=== PATIENT | female | born 1995 | race Caucasian/White ===

== ENCOUNTER 2016-07-11 22:31 | Emergency (ER) | payer MEDICAID ==
[2016-07-11 22:31] VITALS: BMI 27.7
[2016-07-12 00:05] LABS: RBC URINE 1 /hpf (0-3); URINE BACTERIA RARE (<OCC); URINE BILIRUBIN NEGATIVE (NEGATIVE); URINE BLOOD NEGATIVE (NEGATIVE); URINE COLOR Straw (YELLOW); URINE GLUCOSE (UA) NORMAL (Normal); URINE KETONE NEGATIVE (NEGATIVE); URINE LEUKOCYTE ESTERASE NEG Leu/uL (Negative); URINE PROTEIN NEGATIVE (NEGATIVE); URINE UROBILINOGEN NORMAL mg/dL (0.2-1.0); WBC URINE 1 /hpf (0-5)
--- NOTE | 2016-07-12 00:05 | C.PDOC ---
History Of Present Illness Patient presents to the ER with a complaint of dizziness, headache, and spinning sensation. Patient states she saw PMD who started her on motrin for the migraine, however, she states the pain worsened. Patient denies trauma, vision change, nausea or vomiting. Time Seen by Provider: 07/12/16 00:05 Chief Complaint (Nursing): Dizziness/Lightheaded History Per: Patient History/Exam Limitations: no limitations Onset/Duration Of Symptoms: Days Current Symptoms Are (Timing): Still Present Current Symptoms: Dizziness, headache, spinning sensation Activity At Onset Of Symptoms: Other (Not known) Seizure Or Post-ictal Symptoms: None Fall Associated With With Symptoms: No Severity: None Pain Scale Rating Of: 0 Recent travel outside of the [place]: No Past Medical History Reviewed: Historical Data, Nursing Documentation, Vital Signs Vital Signs: Last Vital Signs Temp 98.5 F 07/11/16 23:01 Pulse 81 07/12/16 02:26 Resp 14 07/12/16 02:26 BP 93/53 L 07/12/16 02:26 Pulse Ox 98 07/12/16 02:26 - Medical History PMH: No Chronic Diseases - [facility] Procedures MANUAL ASSIST DELIV NEC (04/22/14) REPAIR OB LACERATION NEC (04/22/14) Family History: States: No Known Family Hx - Social History Hx Tobacco Use: No Hx Alcohol Use: No Hx Substance Use: No - Immunization History Hx Tetanus Toxoid Vaccination: No Hx Influenza Vaccination: Yes (2014) Hx Pneumococcal Vaccination: No Review Of Systems Eyes: Negative for: Vision Change Gastrointestinal: Negative for: Nausea, Vomiting Neurological: Positive for: Headache, Dizziness, Other (Spinning sensation) Physical Exam - Physical Exam Appears: Well, Non-toxic Skin: Warm, Dry Eye(s): bilateral: Normal Inspection, PERRL, EOMI, Other (No nystagmus) Oral Mucosa: Moist Chest: Symmetrical, No Tenderness Cardiovascular: Rhythm Regular, No Murmur Respiratory: No Rales, No Rhonchi, No Wheezing Gastrointestinal/Abdominal: Soft, No Tenderness Neurological/Psych: Oriented x3, No Romberg ED Course And Treatment - Laboratory Results Result Diagrams: 07/12/16 00:30 07/12/16 00:30 O2 Sat by Pulse Oximetry: 100 (Room air) Pulse Ox Interpretation: Normal Progress Note: Head CT w/o contrast and urinalysis ordered. Zofran IVP administered. Reevaluation Time: 02:49 Reassessment Condition: Improved Disposition Counseled Patient/Family Regarding: Studies Performed, Diagnosis, Need For Followup, Rx Given - Disposition Referrals: [facility] [Outside] [facility] [Outside] Disposition: HOME/ ROUTINE Disposition Time: 00:05 Condition: FAIR Prescriptions: Meclizine [Meclizine*] 25 mg PO Q6 #30 tab Ondansetron ODT [Zofran ODT] 1 odt PO BID PRN #10 odt PRN Reason: Nausea/Vomiting Instructions: Acute Headache (DC), Dizziness (ED) Forms: School Excuse - Clinical Impression Clinical Impression: Dizziness, Headache - Scribe Statement The provider has reviewed the documentation as recorded by the Scribshanthi Gaston All medical record entries made by the Yasmineibshanthi were at my direction and personally dictated by me. I have reviewed the chart and agree that the record accurately reflects my personal performance of the history, physical exam, medical decision making, and the department course for this patient. I have also personally directed, reviewed, and agree with the discharge instructions and disposition.
[2016-07-12 00:33] LABS: BASO % 0.2 % (0.0-2.0); EOS # 0.1 K/uL (0.0-0.7); EOS % 1.2 % (0.0-4.0); HEMATOCRIT 44.1 % (34.0-47.0); LYMPH # 2.3 K/uL (1.0-4.3); LYMPH % 25.9 % (20.0-40.0); MEAN CELL VOLUME 87.4 fL (81.0-99.0); MEAN CORPUSCULAR HEMOGLOBIN 29.3 pg (27.0-31.0); MEAN CORPUSCULAR HGB CONC 33.5 g/dL (33.0-37.0); MEAN PLATELET VOLUME 10.3 fL (7.2-11.7); MONO # 0.7 K/uL (0.0-0.8); MONO % 7.6 % (0.0-10.0); RED CELL DISTRIBUTION WIDTH 13.1 % (11.5-14.5); WHITE BLOOD COUNT 8.9 K/uL (4.8-10.8)
[2016-07-12 00:40] LABS: CHLORIDE 100 mmol/L (98-107)
[2016-07-12 00:41] LABS: POTASSIUM 3.5 mmol/L (3.6-5.2); SODIUM 139 mmol/L (132-148)
[2016-07-12 00:43] LABS: BILIRUBIN,TOTAL < 0.1 mg/dL (0.2-1.3); GFR AFRICAN-AMERICAN > 60
[2016-07-12 00:44] LABS: ALB/GLOB RATIO 2.1 (1.0-2.1); ALKALINE PHOSPHATASE 59 U/L (38-126); ALT/SGPT 36 U/L (9-52); AST/SGOT 23 U/L (14-36); BLOOD UREA NITROGEN 10 mg/dL (7-17); CALCIUM 9.4 mg/dl (8.6-10.4); CARBON DIOXIDE 27 mmol/L (22-30); GLUCOSE,RANDOM 93 mg/dL (65-105)
[2016-07-12] MEDS ORDERED: Sodium Chloride 0.9% 500 ML IV ONE (02:00)
[2016-07-12 03:33] VITALS: BP 114/78; PULSE 68; RESP 18; TEMP 98; O2SAT 98
--- NOTE | 2016-07-12 08:16 | CT ---
PROCEDURE: CT HEAD WITHOUT CONTRAST. HISTORY: Headache, dizziness COMPARISON: None available. TECHNIQUE: Axial computed tomography images were obtained through the head/brain without intravenous contrast. Radiation dose: Total exam DLP = 850.64 mGy-cm. This CT exam was performed using one or more of the following dose reduction techniques: Automated exposure control, adjustment of the mA and/or kV according to patient size, and/or use of iterative reconstruction technique. FINDINGS: HEMORRHAGE: No intracranial hemorrhage. BRAIN: No mass effect or edema. No atrophy or chronic microvascular ischemic changes. VENTRICLES: Unremarkable. No hydrocephalus. CALVARIUM: Unremarkable. PARANASAL SINUSES: Unremarkable as visualized. No significant inflammatory changes. MASTOID AIR CELLS: Unremarkable as visualized. No inflammatory changes. OTHER FINDINGS: None. IMPRESSION: No evidence of acute intracranial hemorrhage or acute pathology in the brain. Preliminary report was submitted by virtual Radiology contains concordance findings.
== END 2016-07-12 03:33 | disposition home or self-care (01) ==
LOC: C.ER 22:31
DX: R42 Dizziness and giddiness (principal); R51 Headache
CPT/HCPCS: 70450; 80053; 81001; 84703; 85025; 96361; 96374; 99285; J2405; J7040